=== PATIENT | female | born 1965 | race Caucasian/White ===

== ENCOUNTER 2019-01-07 15:34 | Emergency (ER) | payer MEDICAID, SELFPAY ==
[2019-01-07 15:47] VITALS: BP 110/63; PULSE 65; RESP 20; TEMP 36.8; O2SAT 98
--- NOTE | 2019-01-07 16:09 | W.ED.GENAD ---
Discharge Plan Disposition Patient Disposition: HOME Condition: Stable Discharge Details Chief Complaint: Orthopedic Clinical Impression: Pain in left knee Primary Care Provider: Billy Dumont ED Provider: Eder Sparks Home Meds and New Rx's Prescriptions: No Action No Known Home Meds RF: 0 Discharge Instructions Instructions: Knee Pain (ED) Additional Instructions: call orthopedics for an appointment. If you develop severe worsening pain, fevers or the joint becomes red and swollen return to the emergency department Medical Decision Making 53 yo female states she was getting exercises done on her lower legs in October when the therapist yanked her left knee and has had pain since. SHe denies any other trauma, fevers, hcills. Has increased pain at the end of the end of the day. Localizes the pain to the anterior patella and has pain over medial joint line, no effusion, warmth or redness, no findings to suggest septic joint. She did dnot have any trauma and has full rom of the knee so doubt fx/dislocation. She does have some medial joint pain so could be arthritis vs meniscus injury. I recommended f/u with pcp but she states she doesn't trust them and would like ortho referral which I will provide, return precautions given. There is no leg swelling or calf pain so doubt dvt at this time Differential Diagnosis meniscus injury, bursitis, arthritis HPI General Mode of arrival: ambulatory. Date/Time Provider Initiated Documentation: 01/07/19 15:54. Limitations to Documentation: no limitations. Information obtained by: patient. History of Present Illness 53 year old F presents to the emergency department with the chief complaint of left knee pain, described as mild, Quality is described as aching, Patient started experiencing this month(s) (3) and it has been constant. No relieving factors improve symptom(s), No exacerbating factors reported . Patient did receive the following treatments prior to arrival, none Related Data Home Medications Medication Instructions Recorded Confirmed Unknown [No Known Home Meds] 01/07/19 01/07/19 Allergies Allergy/AdvReac Type Severity Reaction Status Date / Time bee venom protein (honey bee) Allergy Unverified 01/07/19 15:56 General Stated Complaint: Orthopedic AGNIESZKA: 3 Review of Systems Review of Systems All systems reviewed & are unremarkable except as noted in HPI and below Constitutional Denies chills and Denies fever(s) Cardiovascular Denies chest pain and Denies dyspnea Respiratory Denies cough and Denies dyspnea Gastrointestinal Denies abdominal pain, Denies nausea and Denies vomiting Exam Const General: no acute distress Orientation: alert HENMT Head: normal to inspection Ears: external ears normal General nose exam: external nose normal Mouth: moist mucous membranes Eyes General: appearance normal, both eyes and all related structures Neck Neck: normal visual inspection Resp Effort & Inspection: normal respiratory effort and able to speak in complete sentences Cardio Rate: regular rate Skin General skin exam: no rashes or lesions noted Neuro General: alert and oriented x3 Extrem General: normal to inspection Psych Mental Status: mental status grossly normal Course Vital Signs Temperature 36.8 C 01/07/19 15:47 Pulse 65 01/07/19 15:47 Respiratory Rate 20 01/07/19 15:47 Blood Pressure 110/63 01/07/19 15:47 Pulse Oximetry 98 01/07/19 15:47 Temperature 36.8 C 01/07/19 15:47 Temperature Source Temporal Artery Scan 01/07/19 15:47 Pulse 65 01/07/19 15:47 Respiratory Rate 20 01/07/19 15:47 Blood Pressure 110/63 01/07/19 15:47 Pulse Oximetry 98 01/07/19 15:47 Pain Level 7 01/07/19 15:47
--- NOTE | 2019-01-07 16:13 | ED.GENADUL_ITS ---
Discharge Plan Disposition Patient Disposition: HOME Condition: Stable Discharge Details Chief Complaint: Orthopedic Clinical Impression: Pain in left knee Primary Care Provider: Billy Dumont ED Provider: Eder Sparks Home Meds and New Rx's Prescriptions: No Action No Known Home Meds RF: 0 Discharge Instructions Instructions: Knee Pain (ED) Additional Instructions: call orthopedics for an appointment. If you develop severe worsening pain, fevers or the joint becomes red and swollen return to the emergency department Medical Decision Making 53 yo female states she was getting exercises done on her lower legs in October when the therapist yanked her left knee and has had pain since. SHe denies any other trauma, fevers, hcills. Has increased pain at the end of the end of the day. Localizes the pain to the anterior patella and has pain over medial joint line, no effusion, warmth or redness, no findings to suggest septic joint. She did dnot have any trauma and has full rom of the knee so doubt fx/dislocation. She does have some medial joint pain so could be arthritis vs meniscus injury. I recommended f/u with pcp but she states she doesn't trust them and would like ortho referral which I will provide, return precautions given. There is no leg swelling or calf pain so doubt dvt at this time Differential Diagnosis meniscus injury, bursitis, arthritis HPI General Mode of arrival: ambulatory . Date/Time Provider Initiated Documentation: 01/07/19 15:54 . Limitations to Documentation: no limitations . Information obtained by: patient . History of Present Illness 53 year old F presents to the emergency department with the chief complaint of left knee pain, described as mild, Quality is described as aching, Patient started experiencing this month(s) (3) and it has been constant. No relieving factors improve symptom(s), No exacerbating factors reported . Patient did receive the following treatments prior to arrival, none Related Data Home Medications Medication Instructions Recorded Confirmed Unknown [No Known Home Meds] 01/07/19 01/07/19 Allergies Allergy/AdvReac Type Severity Reaction Status Date / Time bee venom protein (honey bee) Allergy Unverified 01/07/19 15:56 General Stated Complaint: Orthopedic AGNIESZKA: 3 Review of Systems Review of Systems All systems reviewed & are unremarkable except as noted in HPI and below Constitutional Denies chills and Denies fever(s) Cardiovascular Denies chest pain and Denies dyspnea Respiratory Denies cough and Denies dyspnea Gastrointestinal Denies abdominal pain, Denies nausea and Denies vomiting Exam Const General: no acute distress Orientation: alert HENMT Head: normal to inspection Ears: external ears normal General nose exam: external nose normal Mouth: moist mucous membranes Eyes General: appearance normal, both eyes and all related structures Neck Neck: normal visual inspection Resp Effort & Inspection: normal respiratory effort and able to speak in complete sentences Cardio Rate: regular rate Skin General skin exam: no rashes or lesions noted Neuro General: alert and oriented x3 Extrem General: normal to inspection Psych Mental Status: mental status grossly normal Course Vital Signs Temperature 36.8 C 01/07/19 15:47 Pulse 65 01/07/19 15:47 Respiratory Rate 20 01/07/19 15:47 Blood Pressure 110/63 01/07/19 15:47 Pulse Oximetry 98 01/07/19 15:47 Temperature 36.8 C 01/07/19 15:47 Temperature Source Temporal Artery Scan 01/07/19 15:47 Pulse 65 01/07/19 15:47 Respiratory Rate 20 01/07/19 15:47 Blood Pressure 110/63 01/07/19 15:47 Pulse Oximetry 98 01/07/19 15:47 Pain Level 7 01/07/19 15:47
[2019-01-07 16:39] VITALS: BP 110/63; PULSE 65; RESP 20; TEMP 36.8; O2SAT 98
== END 2019-01-07 16:39 | disposition home or self-care (01) ==
PROVIDERS: Emergency Provider Emergency Medicine; PCP Family Medicine
DX: M25.562 Pain in left knee (principal)
CPT/HCPCS: 99282

== ENCOUNTER 2019-01-15 09:02 | Outpatient (CLI) | payer MEDICAID, SELFPAY ==
--- NOTE | 2019-01-15 11:07 | DI.RAD_ITS ---
SYMPTOMS/DIAGNOSIS: LT KNEE PAIN LEFT KNEE: Two views were obtained. There is mild hypertrophic spurring of the bones of the knee. Calcific or ossific radiodensity is projected posterior to the proximal tibia which is nonspecific. No other significant bony abnormality seen.
== END 2019-01-15 09:22 ==
PROVIDERS: PCP Family Medicine; Visit Provider Physician Assistant
DX: M25.562 Pain in left knee (principal)
CPT/HCPCS: 73560

== ENCOUNTER 2019-02-19 18:08 | Emergency (ER) | payer MEDICAID, SELFPAY ==
[2019-02-19 18:15] VITALS: BP 115/63; PULSE 61; RESP 16; TEMP 36.9; O2SAT 98
--- NOTE | 2019-02-19 18:26 | W.ED.GENAD ---
Discharge Plan Disposition Patient Disposition: HOME Discharge Details Chief Complaint: Orthopedic Clinical Impression: Contusion of elbow, right, Effusion, left knee, Injury of knee, left Primary Care Provider: None,None ED Provider: Ulises Alvarado Home Meds and New Rx's Prescriptions: No Action No Known Home Meds RF: 0 Discharge Instructions Instructions: Elbow Sprain (ED), Hinged Knee Brace (ED) Additional Instructions: Please use sling for comfort. As your pain decreases you can discontinue use. Use hinged knee brace to provide support for the next 2 weeks. Please take ibuprofen over the counter. Take 400mg by mouth every 6 hours as needed for pain. Please contact your primary care physician to arrange follow-up. If pain persist you should be seen by soil specialist. Return to the ER for any worsening or new concerning symptoms. Medical Decision Making 18:57 -- 53-year-old female with Ukoaqga-Chuvx-Gbljw disease and intermittent dizziness here after fall down 2 steps with injury to her right elbow and left knee. Patient is neurovascular intact distal to injury both extremities. Consider right elbow fracture. Plan to xray. I will also x-ray the left knee to assess for any bony abnormality but I am concerned about meniscal injury or ligamentous injury. Plan to give ibuprofen 400 mg for discomfort. 20:20 -- X-ray of the elbow interpreted by radiology: No acute bony abnormality. X-ray of the knee interpreted by radiology: No acute bony abnormality, small effusion (worse compared to prior) Plan to place right elbow in sling and left knee in hinged knee brace. I suggested single crutch to help with ambulation and patient declined. On reassessment patient notes pain significantly improved after ibuprofen. HPI General Mode of arrival: ambulatory. Date/Time Provider Initiated Documentation: 02/19/19 18:26. Limitations to Documentation: no limitations. Information obtained by: patient. HPI Narrative: 53-year-old female presents with chief complaint of elbow pain. 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 Today she was going down her stairs and experienced dizziness and fell down 2 steps and injured her right elbow and left knee. Elbow pain is described as moderate and worse with movement of the elbow. She has no associated numbness or tingling. No shoulder or wrist pain. Patient also notes left knee discomfort. Specifically she notes that when she stands on it she has some discomfort in the posterior of her knee and feels like her knee is going to give out when she takes a step. Patient did not hit her head during the fall. She has no headache. No loss of consciousness. No neck pain or back pain. No other injury. Related Data Home Medications Medication Instructions Recorded Confirmed Unknown [No Known Home Meds] 02/19/19 02/19/19 Allergies Allergy/AdvReac Type Severity Reaction Status Date / Time bee venom protein (honey bee) Allergy Unverified 02/19/19 18:18 General Stated Complaint: Orthopedic AGNIESZKA: 4 Review of Systems Musculoskeletal Reports as per HPI Neurologic Reports as per HPI [facility] Medical History History of hysterectomy (Resolved) Social History Smoking/Tobacco Use Status: Never Alcohol Intake: never Exam Const General: cooperative and no acute distress HENMT Head: normocephalic and atraumatic Neck Neck: trachea midline and supple Resp Auscultation: clear to auscultation bilaterally, no rales, no rhonchi and no wheezes Cardio Jugular venous pressure: no JVD Rate: regular rate and not tachycardic Rhythm: regular rhythm Back/Spine/Pelvis Back: No back tenderness Cervical Spine: cervical ROM normal and No cervical spinal tenderness Skin General skin exam: no rashes or lesions noted Neuro General: alert, awake and tone normal Extrem General: no edema Right upper extremity: shoulder/upper arm Details: no tenderness, elbow/forearm Details: tenderness Location: of the lateral epicondyle and of the medial epicondyle, abnormal ROM Details: pain with active ROM during Details: with extension and with supination and distal pulses intact; no deformity and wrist Details: normal ROM; no tenderness Left lower extremity: knee Details: normal ROM and knee ligament exam normal; no tenderness, no swelling and no unusual warmth Course Vital Signs Temperature 36.9 C 02/19/19 18:15 Pulse 61 02/19/19 18:15 Respiratory Rate 16 02/19/19 18:15 Blood Pressure 115/63 02/19/19 18:15 Pulse Oximetry 98 02/19/19 18:15 Temperature 36.9 C 02/19/19 18:15 Temperature Source Skin 02/19/19 18:15 Pulse 61 02/19/19 18:15 Respiratory Rate 16 02/19/19 18:15 Respiratory Effort Non-Labored 02/19/19 18:15 Blood Pressure 115/63 02/19/19 18:15 Blood Pressure Position Sitting 02/19/19 18:15 Pulse Oximetry 98 02/19/19 18:15 Oxygen Delivery Method Room Air 02/19/19 18:15 Oxygen Flow Rate 0 02/19/19 18:15 Pain Level 8 02/19/19 18:15
--- NOTE | 2019-02-19 18:46 | DI.RAD_ITS ---
SYMPTOM/DIAGNOSIS: PAIN, FALL RIGHT ELBOW: Three views. No priors. No acute fracture or dislocation is present.
--- NOTE | 2019-02-19 18:46 | DI.RAD_ITS ---
SYMPTOM/DIAGNOSIS: PAIN, FALL, FEELS LIKE GOING TO GIVE OUT LEFT KNEE: Three views. Comparison 01/15/19 No acute fracture or dislocation is identified. There is a tiny osseous density adjacent to the tibial spine which appears stable. There is a small joint effusion which has shown slight increase in size compared to the prior examination. The soft tissues are otherwise unremarkable. IMPRESSION: No acute fracture or dislocation.
--- NOTE | 2019-02-19 18:58 | ED.GENADUL_ITS ---
Discharge Plan Disposition Patient Disposition: HOME Discharge Details Chief Complaint: Orthopedic Clinical Impression: Contusion of elbow, right, Effusion, left knee, Injury of knee, left Primary Care Provider: None,None ED Provider: Ulises Alvarado Home Meds and New Rx's Prescriptions: No Action No Known Home Meds RF: 0 Discharge Instructions Instructions: Elbow Sprain (ED), Hinged Knee Brace (ED) Additional Instructions: Please use sling for comfort. As your pain decreases you can discontinue use. Use hinged knee brace to provide support for the next 2 weeks. Please take ibuprofen over the counter. Take 400mg by mouth every 6 hours as needed for pain. Please contact your primary care physician to arrange follow-up. If pain persist you should be seen by medical education specialist. Return to the ER for any worsening or new concerning symptoms. Medical Decision Making 18:57 -- 53-year-old female with Lgfgrgn-Xhfms-Spjuw disease and intermittent dizziness here after fall down 2 steps with injury to her right elbow and left knee. Patient is neurovascular intact distal to injury both extremities. Consider right elbow fracture. Plan to xray. I will also x-ray the left knee to assess for any bony abnormality but I am concerned about meniscal injury or ligamentous injury. Plan to give ibuprofen 400 mg for discomfort. 20:20 -- X-ray of the elbow interpreted by radiology: No acute bony abnormality. X-ray of the knee interpreted by radiology: No acute bony abnormality, small effusion (worse compared to prior) Plan to place right elbow in sling and left knee in hinged knee brace. I suggested single crutch to help with ambulation and patient declined. On reassessment patient notes pain significantly improved after ibuprofen. HPI General Mode of arrival: ambulatory . Date/Time Provider Initiated Documentation: 02/19/19 18:26 . Limitations to Documentation: no limitations . Information obtained by: patient . HPI Narrative: 53-year-old female presents with chief complaint of elbow pain. 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 Today she was going down her stairs and experienced dizziness and fell down 2 steps and injured her right elbow and left knee. Elbow pain is described as moderate and worse with movement of the elbow. She has no associated numbness or tingling. No shoulder or wrist pain. Patient also notes left knee discomfort. Specifically she notes that when she stands on it she has some discomfort in the posterior of her knee and feels like her knee is going to give out when she takes a step. Patient did not hit her head during the fall. She has no headache. No loss of consciousness. No neck pain or back pain. No other injury. Related Data Home Medications Medication Instructions Recorded Confirmed Unknown [No Known Home Meds] 02/19/19 02/19/19 Allergies Allergy/AdvReac Type Severity Reaction Status Date / Time bee venom protein (honey bee) Allergy Unverified 02/19/19 18:18 General Stated Complaint: Orthopedic AGNIESZKA: 4 Review of Systems Musculoskeletal Reports as per HPI Neurologic Reports as per HPI [facility] Medical History History of hysterectomy (Resolved) Social History Smoking/Tobacco Use Status: Never Alcohol Intake: never Exam Const General: cooperative and no acute distress HENMT Head: normocephalic and atraumatic Neck Neck: trachea midline and supple Resp Auscultation: clear to auscultation bilaterally, no rales, no rhonchi and no wheezes Cardio Jugular venous pressure: no JVD Rate: regular rate and not tachycardic Rhythm: regular rhythm Back/Spine/Pelvis Back: No back tenderness Cervical Spine: cervical ROM normal and No cervical spinal tenderness Skin General skin exam: no rashes or lesions noted Neuro General: alert, awake and tone normal Extrem General: no edema Right upper extremity: shoulder/upper arm Details: no tenderness, elbow/forearm Details: tenderness Location: of the lateral epicondyle and of the medial epicondyle, abnormal ROM Details: pain with active ROM during Details: with extension and with supination and distal pulses intact; no deformity and wrist Details: normal ROM; no tenderness Left lower extremity: knee Details: normal ROM and knee ligament exam normal; no tenderness, no swelling and no unusual warmth Course Vital Signs Temperature 36.9 C 02/19/19 18:15 Pulse 61 02/19/19 18:15 Respiratory Rate 16 02/19/19 18:15 Blood Pressure 115/63 02/19/19 18:15 Pulse Oximetry 98 02/19/19 18:15 Temperature 36.9 C 02/19/19 18:15 Temperature Source Skin 02/19/19 18:15 Pulse 61 02/19/19 18:15 Respiratory Rate 16 02/19/19 18:15 Respiratory Effort Non-Labored 02/19/19 18:15 Blood Pressure 115/63 02/19/19 18:15 Blood Pressure Position Sitting 02/19/19 18:15 Pulse Oximetry 98 02/19/19 18:15 Oxygen Delivery Method Room Air 02/19/19 18:15 Oxygen Flow Rate 0 02/19/19 18:15 Pain Level 8 02/19/19 18:15
[2019-02-19] MEDS: Ibuprofen 400 MG TAB PO (18:59)
--- NOTE | 2019-02-19 19:25 | DI.VRAD_ITS ---
EXAM: XR Right Elbow EXAM DATE/TIME: 02/19/2019 18:48 CLINICAL HISTORY: 53 years old, female; Elbow; Right; Patient HX: Pain, fall TECHNIQUE: Imaging protocol: XR Right elbow. Views: 3 or more views. COMPARISON: No relevant prior studies available. FINDINGS: Bones/joints: No acute fracture or subluxation. Soft tissues: No significant joint effusion. IMPRESSION: No acute bony pathology. Dictated and Authenticated by: Stella Martin MD. Ordering:MACY Montgomery MD
--- NOTE | 2019-02-19 19:26 | DI.VRAD_ITS ---
EXAM: XR Left Knee EXAM DATE/TIME: 02/19/2019 18:48 CLINICAL HISTORY: 53 years old, female; Pain and signs and symptoms; Other: Pain, fall, feels like going to give out; Knee; Left TECHNIQUE: Imaging protocol: XR Left knee. Views: 3 views. COMPARISON: CR XR knee LT 3V AP,lat,andrey 01/15/2019 11:13 FINDINGS: Bones/joints: No acute fracture or subluxation. Stable tiny calcific density projects adjacent to the medial tibial spine and could reflect a small loose body. Benign coarse calcification in the medial knee. Trace joint effusion has increased slightly. Minimal degenerative changes in the medial and lateral compartments. Soft tissues: See Bones/joints Finding. IMPRESSION: No acute bony pathology. Slight increase in a minor joint effusion. Dictated and Authenticated by: tSella Martin MD. Ordering:MACY Montgomery MD
== END 2019-02-19 20:51 | disposition home or self-care (01) ==
PROVIDERS: Emergency Provider Student in an Organized Health Care Education/Training Program
DX: M25.462 Effusion, left knee (principal); S50.01XA Contusion of right elbow, initial encounter; G60.0 Hereditary motor and sensory neuropathy; W10.8XXA Fall (on) (from) other stairs and steps, initial encounter
CPT/HCPCS: 29505; 73562; 99284; 73080; 99282; L1810; L3650

== ENCOUNTER 2019-03-06 01:15 | Outpatient (CLI) | payer MEDICAID, SELFPAY ==
--- NOTE | 2019-03-06 15:32 | DI.MRI_ITS ---
SYMPTOMS/DIAGNOSIS: LEFT KNEE PAIN S/P FALL 2 WEEKS AGO, INTERNAL DERANGEMENT, M23.92 MRI OF THE LEFT KNEE: Comparison is made with plain films dated February,. Fat-suppressed T2 axial, proton density and fat-suppressed T2 axial and sagittal and proton density oblique sagittal sequences were performed. There is a small joint effusion. Edema is seen in the soft tissues of the anterior knee. The cruciate and collateral ligaments and extensor mechanism appear intact. No meniscal tears are seen. There is cartilage irregularity over the medial femoral condyle. There is marked thinning of the cartilage extending down to bone involving the lateral patellar facet. There is some high signal in the lateral aspect of the patella, as well as periarticular spurring. There is a fluid collection in the inferomedial knee, which contains an ovoid density which could represent a loose body. This is seen on the plain films. There is no evidence of fracture. IMPRESSION: No evidence of ligament or meniscal tear. Degenerative changes of the lateral patellofemoral joint. Fluid in the pes anserine bursa and loose body within the bursa.
== END 2019-03-06 01:35 ==
PROVIDERS: Visit Provider Orthopaedic Surgery
DX: M25.562 Pain in left knee (principal); M23.92 Unspecified internal derangement of left knee; M17.12 Unilateral primary osteoarthritis, left knee; R60.0 Localized edema
CPT/HCPCS: 73721

== ENCOUNTER 2019-04-28 10:37 | Outpatient (REF) | payer MEDICAID, SELFPAY ==
[2019-04-28 13:09] LABS: HCT 41.8 % (36.0-46.0); HGB 13.7 g/dL (12.0-15.5); Mean Corp. HGB Concentration 32.8 g/dL (32.0-36.0); Mean Corpuscular Hemoglobin 29.5 pg (27.0-33.0); Mean Corpuscular Volume 89.9 fL (80-95); Mean Platelet Volume 10.8 fL (8.0-11.0); Platelet Count 270 x1000/uL (130-400); RBC 4.65 m/cumm (4.00-5.20); RBC Distribution Width 13.8 % (11.7-14.6); White Blood Cell Count 6.13 k/cumm (4.4-10.8)
[2019-04-28 14:42] LABS: ALT 27 U/L (12-78); AST 19 U/L (15-37); Albumin 3.5 g/dL (3.4-5.0); Alkaline Phosphatase 83 U/L (46-116); Anion Gap 9.9 mmol/L (3-11); BUN 18 mg/dL (7-18); Bilirubin, Total 0.4 mg/dL (0.2-1.0); CO2 26.1 mmol/L (21.0-32.0); Calcium 8.7 mg/dL (8.5-10.1); Calculated LDL 148 mg/dL; Chloride 104 mmol/L (98-107); Cholesterol 218 mg/dL (50-200); Glucose 86 mg/dL (70-100); HDL Cholesterol 60 mg/dL (40-60); Potassium 4.1 mmol/L (3.5-5.1); Sodium 140 mmol/L (136-145); Total Protein 7.4 g/dL (6.4-8.2); Triglyceride 53 mg/dL (30-150)
== END 2019-04-28 10:57 ==
LOC: NCHCN 10:37
PROVIDERS: Visit Provider Nurse Practitioner Family
DX: Z00.00 Encounter for general adult medical examination without abnormal findings (principal); Z13.0 Encounter for screening for diseases of the blood and blood-forming organs and certain disorders involving the immune mechanism; Z13.1 Encounter for screening for diabetes mellitus; Z13.220 Encounter for screening for lipoid disorders
CPT/HCPCS: 80053; 80061; 83721; 85027

== ENCOUNTER 2019-05-13 17:44 | Emergency (ER) | payer MEDICAID, SELFPAY ==
[2019-05-13 17:54] VITALS: BP 123/74; PULSE 65; RESP 16; TEMP 37.1; O2SAT 98
--- NOTE | 2019-05-13 18:09 | DI.RAD_ITS ---
SYMPTOM/DIAGNOSIS: FALL, LATERAL PAIN AND ECCHYMOSIS PELVIS AND LEFT HIP: Three views were obtained. No acute fracture or dislocation is identified. The bones are normally mineralized. There are clips in the pelvis consistent with prior tubal ligation. IMPRESSION: No acute fracture or dislocation.
--- NOTE | 2019-05-13 18:16 | ED.GENADUL_ITS ---
Discharge Plan Disposition Patient Disposition: HOME Condition: Good Discharge Details Chief Complaint: Orthopedic Clinical Impression: Contusion Primary Care Provider: Ryan Grigsby ED Provider: Gail Hargrove Home Meds and New Rx's Prescriptions: New lidocaine [Lidoderm] 5 % adhesive patch,medicated 1 patch TP DAILY PRN (Reason: pain) Qty: 15 RF: 0 Discharge Instructions Instructions: Contusion in Adults (ED) Additional Instructions: Encourage rest, ice, elevation. Tylenol and ibuprofen as needed for discomfort. Please follow-up with orthopedics to discuss upcoming surgery. If the area becomes red, hot, increased swelling, increased pain, altered sensation or other new/worsening symptoms please seek care urgently once again. Referrals: Ludwig Esparza MD [ [facility] STAFF PHYSICIAN] - Medical Decision Making Patient is a 54-year-old female presenting today with chief complaint of left hip pain. Patient has a history of Ulazixo-Uzkmi-Yvjye disorder. She reports that yesterday, she fell while doing laundry. States she landed on the left posterior aspect of the left hip. Denies any altered sensation. 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 Has upcoming surgery on the left knee for evaluation of unknown effusion. FINDINGS: Bones/joints: Hip joint spaces are symmetric and well-preserved. There is no dislocation. There is no acute fracture. There is prominent medial angulation of the left femoral diaphysis compared to the right side however the Soft tissues: Normal. Intraperitoneal space: There surgical clips in the pelvis consistent with a tubal ligation. IMPRESSION: Angulation of the visualized portion of femoral shaft which may just be due to patient positioning. It is possible that this could be due to an abnormality of the lower femur which is not visualized. Clinical correlation is suggested Concerns of radiologist as above does not correlate clinically. Patient reports that she had her toes internally rotated during imaging. With patients history of CMT, she has a list of 60 medications that she should not take, she reports that she is very limited on medications. Given topical relief with Lidoderm patch. i do not see evidence of large hematoma, exam is not concerning for DVT at this time Feel that she can be managed conservatively as an outpatient. Advised she contact Dr. Esparza as she has upcoming surgeyr with his for her left knee. She was given strict return precautions. All of her questions and concerns were addressed, she is in agreement with this plan . HPI General Mode of arrival: ambulatory . Date/Time Provider Initiated Documentation: 05/13/19 17:52 . Limitations to Documentation: no limitations . Information obtained by: patient, family and RN notes reviewed . History of Present Illness 54 year old F presents to the emergency department with the chief complaint of left hip pain, described as mild, Quality is described as aching, and is localized to the left and lower extremity. Patient reports no radiation. Patient started experiencing this day(s) (1) and it has been constant. Immobilization improves symptom(s), Movement worsens symptoms . Patient notes no other symptoms.. Patient did receive the following treatments prior to arrival, none Related Data Home Medications Medication Instructions Recorded Confirmed lidocaine [Lidoderm] 1 patch TP DAILY PRN #15 each 05/13/19 Previous Rx's Medication Instructions Recorded lidocaine [Lidoderm] 1 patch TP DAILY PRN #15 each 05/13/19 Allergies Allergy/AdvReac Type Severity Reaction Status Date / Time bee venom protein (honey bee) Allergy Unverified 04/28/19 10:09 paclitaxel [From Taxol] AdvReac Severe Other (See Unverified 05/13/19 20:34 Comment) vincristine AdvReac Severe Other (See Unverified 05/13/19 20:34 Comment) amiodarone AdvReac Intermediate Other (See Unverified 05/13/19 20:34 Comment) arsenic [From Trisenox] AdvReac Intermediate Other (See Unverified 05/13/19 20:34 Comment) bortezomib [From Velcade] AdvReac Intermediate Other (See Unverified 05/13/19 20:34 Comment) brentuximab vedotin AdvReac Intermediate Other (See Unverified 05/13/19 20:34 [From Adcetris] Comment) cetuximab [From Erbitux] AdvReac Intermediate Other (See Unverified 05/13/19 20:34 Comment) cisplatin AdvReac Intermediate Other (See Unverified 05/13/19 20:34 Comment) dapsone AdvReac Intermediate Other (See Unverified 05/13/19 20:34 Comment) didanosine AdvReac Intermediate Other (See Unverified 05/13/19 20:34 Comment) disulfiram AdvReac Intermediate Other (See Unverified 05/13/19 21:19 Comment) eribulin [From Halaven] AdvReac Intermediate Other (See Unverified 05/13/19 21:19 Comment) oxaliplatin AdvReac Intermediate Other (See Unverified 05/13/19 20:34 Comment) General Stated Complaint: Orthopedic AGNIESZKA: 4 Review of Systems Constitutional Reports as per HPI, Denies chills, Denies fever(s), Denies headache(s) and Denies weakness ENT Denies headache(s) Cardiovascular Reports as per HPI Respiratory Reports as per HPI and Denies cough Musculoskeletal Reports as per HPI and Denies tingling Integumentary/Breasts Reports as per HPI, Denies rash, Denies wounds and Reports other (ecchymosis left postioerlateral hip) Neurologic Reports as per HPI, Denies headache(s), Denies tingling, Denies paresthesias and Denies weakness [facility] Medical History History of hysterectomy (Resolved) Social History Smoking/Tobacco Use Status: Never Alcohol Intake: never Substance use type: former substance user Do you feel safe at home: Yes Do you feel safe in your relationship?: Yes Exam Const General: cooperative, healthy appearing, comfortable, no acute distress, well developed and well groomed Nutritional Appearance: average body habitus and well nourished Orientation: alert and awake Resp Effort & Inspection: normal respiratory effort, able to speak in complete sentences and no respiratory distress Cardio Rate: regular rate Rhythm: regular rhythm Skin General skin exam: ecchymosis (posteriolaterla left hip) Full body images: 1. ecchymosis with soft tissue swelling Neuro General: alert and awake Cognition: normal cognition Speech: speech normal Gait: normal gait Motor: muscle tone normal throughout Sensory Exam: no sensory deficits noted Extrem Left lower extremity: full ROM, normal capillary refill, no joint enlargement, hip/thigh Details: tenderness Location: of the hip Location: laterally, swelling Location: of the hip, normal ROM and ecchymosis; no abrasions, no lacerations, no crepitus, no penetrating wound, no deformity and no unusual warmth, knee Details: tenderness and swelling (no acute change in this); inspection abnormal (swelling to left knee, patient reports this is chronic), lower leg Details: normal to inspection and no edema; no erythema, no tenderness, no localized swelling and no palpable cords and foot Details: normal capillary refill and vascular exam Details: dorsalis pedis pulse present and normal capillary refill; no cyanosis and no edema Psych Appearance: grossly normal and well kempt Mental Status: mental status grossly normal Speech and Movement: speech and movement normal Course Vital Signs Temperature 37.1 C 05/13/19 17:54 Pulse 65 05/13/19 17:54 Respiratory Rate 16 05/13/19 17:54 Blood Pressure 123/74 05/13/19 17:54 Pulse Oximetry 98 05/13/19 17:54 Temperature 37.1 C 05/13/19 17:54 Temperature Source Temporal Artery Scan 05/13/19 17:54 Pulse 65 05/13/19 17:54 Respiratory Rate 16 05/13/19 17:54 Respiratory Effort Non-Labored 05/13/19 17:56 Blood Pressure 123/74 05/13/19 17:54 Blood Pressure Position Sitting 05/13/19 17:54 Pulse Oximetry 98 05/13/19 17:54 Oxygen Delivery Method Room Air 05/13/19 17:54 Oxygen Flow Rate 0 05/13/19 17:54 Pain Level 9 05/13/19 17:56
[2019-05-13] MEDS: Lidocaine 5% Patch 1 PATCH TP (18:17)
--- NOTE | 2019-05-13 19:11 | DI.VRAD_ITS ---
EXAM: XR Left Hip with Pelvis when Performed EXAM DATE/TIME: 05/13/2019 6:10 PM CLINICAL HISTORY: 54 years old, female; Hip pain and other: Fall, lateral pain, ecchymosis; Left hip TECHNIQUE: Imaging protocol: XR Left hip with pelvis when performed. Views: 2 or 3 views. COMPARISON: No relevant prior studies available. FINDINGS: Bones/joints: Hip joint spaces are symmetric and well-preserved. There is no dislocation. There is no acute fracture. There is prominent medial angulation of the left femoral diaphysis compared to the right side however the Soft tissues: Normal. Intraperitoneal space: There surgical clips in the pelvis consistent with a tubal ligation. IMPRESSION: Angulation of the visualized portion of femoral shaft which may just be due to patient positioning. It is possible that this could be due to an abnormality of the lower femur which is not visualized. Clinical correlation is suggested Dictated and Authenticated by: Eder Vargas MD. Ordering:NEFTALI Reynolds MD
== END 2019-05-13 19:46 | disposition home or self-care (01) ==
PROVIDERS: Emergency Provider Physician Assistant; PCP Nurse Practitioner Family
DX: S70.02XA Contusion of left hip, initial encounter (principal); W18.30XA Fall on same level, unspecified, initial encounter; Y93.E2 Activity, laundry; G60.0 Hereditary motor and sensory neuropathy
CPT/HCPCS: 99283; 73502

== ENCOUNTER 2019-05-21 13:56 | Outpatient (CLI) | payer MEDICAID, SELFPAY ==
--- NOTE | 2019-05-21 13:11 | W.PREOPHP ---
Assessment and Plan (1) Internal derangement of left knee: Current visit: No Status: Acute Plan: Educated patient on surgery covering surgical technique, recovery process, benefits and risks including but not limited to risk of infection, blood clot, damage to soft tissue/blood vessels/nerves in detail. After discussion patient gives verbal understanding of risks and elects to proceed with scheduling surgery. Patient had opportunity to have questions answered to their satisfaction. They will contact office if issues arise. Patient will continue to be scheduled for diagnostic left knee arthroscopy with Dr. Esparza. History of Present Illness Narrative: Ms. 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 Esparza. Patient has been seen in clinic numerous times for complaints of left knee pain. Review of patient's chart shows that she previously been diagnosed with patellofemoral syndrome and received an injection on 01/15/2019. As per patient injection provided significant pain relief of her left knee pain, unfortunately she suffered a fall in early February and did not experience adequate pain relief with an additional injection received on 03/11/2019. Patient's initial left knee pain started following October 2018 after a fall. Since that time patient has continued to have left knee pain which she identifies as beneath her patella that extends along the entire length of the joint. Although pain is a constant aching sensation, it is further aggravated by ascending/descending stairs and when moving after prolonged sitting. Because the knee feels unstable to her she has also been wearing a knee brace. States that the brace helps to keep the knee stiff and uses a cane to ambulate. Reports recent fall last week in her home when she landed on her left hip which caused significant bruising. Patient underwent an MRI which as per Dr. Esparza's on 03/11/2019 did not show any discrete meniscal injury, ACL and PCL were normal, thinning of articular cartilage on medial femoral condyle and lateral patella facet. Based on patient's continued symptoms despite adequate trial of conservative treatment including rest, activity modification, referral physical therapy, bracing and anti-inflammatories, Dr. Esparza offered surgical intervention patient was eager to proceed. Pertinent Surgical Information Denies past medical history of: Hypertension, stroke, cardiac issues, angina, asthma, COPD, sleep apnea, renal issues, liver issues, hepatitis, gastrointestinal issues, ulcers, hyperlipidemia, bleeding disorders, seizures, migraines, anxiety, depression, diabetes, thyroid issues Denies prior complications from surgery or anesthesia. Review of Systems Constitutional Denies fever(s), Reports frequent falls (due to CMT) and Denies headache(s) Eyes Denies change in vision ENT Denies dizziness, Denies ear discharge, Denies headache(s), Denies epistaxis, Denies nasal discharge and Denies sore throat Cardiovascular Denies chest pain, Denies rapid heart rate, Denies irregular heart rhythm, Denies palpitations, Denies dyspnea, Denies dyspnea on exertion, Denies orthopnea, Denies paroxysmal nocturnal dyspnea and Denies slow heart rate Respiratory Denies cough, Denies dyspnea, Denies dyspnea on exertion and Denies wheezing Gastrointestinal Denies abdominal pain, Denies melena, Denies hematochezia, Denies constipation, Denies diarrhea, Denies nausea and Denies vomiting Genitourinary Denies hematuria, Denies dysuria and Denies urinary urgency Musculoskeletal Reports as per HPI, Denies numbness and Denies tingling Neurologic Denies dizziness, Reports frequent falls (due to CMT), Denies headache(s), Denies numbness and Denies tingling Psychiatric Denies anxiety and Denies depression Endocrine Denies palpitations Allergic/Immunologic Denies wheezing PFSH Medical History (Updated 05/21/19 @ 13:25 by Terri Luna) CMT (Yrvkxoa-Lfgdj-Odbka disease) (Chronic) Diagnosed in 2016 Surgical History (Updated 05/21/19 @ 13:23 by Terri Luna) History of hysterectomy (Resolved) 2007 Status post tubal ligation (Acute) 2006 Family History (Updated 05/21/19 @ 13:27 by Terri Luna) Mother Obesity Father Diabetes Obesity History of heart artery stent Social History (Updated 05/21/19 @ 13:28 by Terri Luna) Smoking/Tobacco Use Status: Never Alcohol Intake: never Drug use: Never Substance use type: does not use Do you feel safe at home: Yes Do you feel safe in your relationship?: Yes Meds Home Medications Medication Instructions Recorded Confirmed Type lidocaine [Lidoderm] 1 patch TP DAILY PRN #15 each 05/13/19 05/21/19 Rx Allergies Allergy/AdvReac Type Severity Reaction Status Date / Time bee venom protein (honey bee) Allergy Unverified 04/28/19 10:09 paclitaxel [From Taxol] AdvReac Severe Other (See Unverified 05/13/19 20:34 Comment) vincristine AdvReac Severe Other (See Unverified 05/13/19 20:34 Comment) amiodarone AdvReac Intermediate Other (See Unverified 05/13/19 20:34 Comment) arsenic [From Trisenox] AdvReac Intermediate Other (See Unverified 05/13/19 20:34 Comment) bortezomib [From Velcade] AdvReac Intermediate Other (See Unverified 05/13/19 20:34 Comment) brentuximab vedotin AdvReac Intermediate Other (See Unverified 05/13/19 20:34 [From Adcetris] Comment) cetuximab [From Erbitux] AdvReac Intermediate Other (See Unverified 05/13/19 20:34 Comment) cisplatin AdvReac Intermediate Other (See Unverified 05/13/19 20:34 Comment) dapsone AdvReac Intermediate Other (See Unverified 05/13/19 20:34 Comment) didanosine AdvReac Intermediate Other (See Unverified 05/13/19 20:34 Comment) disulfiram AdvReac Intermediate Other (See Unverified 05/13/19 21:19 Comment) eribulin [From Halaven] AdvReac Intermediate Other (See Unverified 05/13/19 21:19 Comment) Gold Salts AdvReac Intermediate Other (See Unverified 05/14/19 00:28 Comment) ipilimumab [From Yervoy] AdvReac Intermediate Other (See Unverified 05/14/19 00:28 Comment) ixabepilone [From Ixempra] AdvReac Intermediate Other (See Unverified 05/14/19 00:28 Comment) leflunomide [From Arava] AdvReac Intermediate Other (See Unverified 05/14/19 00:28 Comment) lenalidomide [From Revlimid] AdvReac Intermediate Other (See Unverified 05/14/19 00:28 Comment) metronidazole AdvReac Intermediate Other (See Unverified 05/14/19 00:28 Comment) nitrofurantoin AdvReac Intermediate Other (See Unverified 05/14/19 00:28 Comment) nitrous oxide AdvReac Intermediate Other (See Unverified 05/14/19 00:28 Comment) nivolumab AdvReac Intermediate Other (See Unverified 05/14/19 00:28 Comment) oxaliplatin AdvReac Intermediate Other (See Unverified 05/13/19 20:34 Comment) pembrolizumab [From Keytruda] AdvReac Intermediate Other (See Unverified 05/14/19 00:28 Comment) pomalidomide AdvReac Intermediate Other (See Unverified 05/14/19 00:28 Comment) pyridoxine AdvReac Intermediate Other (See Unverified 05/14/19 00:28 Comment) Quinolones AdvReac Intermediate Other (See Unverified 05/14/19 00:28 Comment) stavudine AdvReac Intermediate Other (See Unverified 05/14/19 00:28 Comment) suramin AdvReac Intermediate Other (See Unverified 05/14/19 00:28 Comment) thalidomide AdvReac Intermediate Other (See Unverified 05/14/19 00:28 Comment) zalcitabine AdvReac Intermediate Other (See Unverified 05/14/19 00:28 Comment) Exam Const General: cooperative and no acute distress HENNE Head: normal to inspection, normocephalic and atraumatic Ears: external ears normal General nose exam: external nose normal and no nasal discharge Face and sinus: face symmetric Mouth: oral mucosae normal, lip normal, tongue normal and moist mucous membranes Teeth and gingiva: dentition normal Throat: posterior oropharynx normal Eyes General: appearance normal, both eyes and all related structures Pupils: PERRL EOM: EOM intact bilaterally Neck Neck: trachea midline Carotids: normal carotid upstroke Lymphatic: no lymphadenopathy noted Resp Effort & Inspection: normal respiratory effort and able to speak in complete sentences Auscultation: clear to auscultation bilaterally, no rales, no rhonchi and no wheezes Cardio Heart Sounds: S1 normal, S2 normal and no murmurs Pulses: radial pulses present bilaterally Skin General skin exam: no rashes or lesions noted
== END 2019-05-21 14:16 ==
PROVIDERS: PCP Nurse Practitioner Family; Visit Provider Orthopaedic Surgery
DX: M23.92 Unspecified internal derangement of left knee (principal); Z01.818 Encounter for other preprocedural examination
CPT/HCPCS: NC

== ENCOUNTER 2019-05-25 08:19 | Day surgery (SDC) | payer MEDICAID, SELFPAY ==
--- NOTE | 2019-05-21 14:33 | NUR.NOTE ---
Pt provided list of allergies r/t Xozdjsa-Awgdg-Ntshb disease, which she was diagnosed with in 2016 with. Offered pt the opportunity to speak with anesthesia, pt declined. Informed June Cuadra CHIMNEY BUILDER HELPER of pt, when her surgery was, and of her diagnosis of Dwjcuyz-Kagix-Nvmhc disease and provided her with the list of allergies. 05/21/19 [id number] Nursing Note:
[2019-05-25] VITALS (13 sets, daily range): BP systolic 90–132; BP diastolic 54–77; PULSE 46–64; RESP 11–16; TEMP 36.1–36.4; O2SAT 98–100
[2019-05-25] MEDS: Lactated Ringers 1,000 ML 80 ML IV (09:15)
[2019-05-25] MEDS: ceFAZolin 2 GM/50 ML BAG IVPB (10:09)
--- NOTE | 2019-05-25 11:39 | W.PM.DSUDISC ---
Discharge Plan Disposition Patient Disposition: HOME Condition: Good Discharge Details Reason For Visit: Arthroscopy L Knee Attending Provider: Ludwig Esparza Primary Care Provider: Ryan Grigsby Home Meds and New Rx's Prescriptions: New ibuprofen [IBU-200] 200 mg tablet 600 mg PO TID Qty: 90 RF: 0 oxycodone-acetaminophen 5-325 mg tablet 1 tab PO Q6H PRN (Reason: pain) Qty: 10 RF: 0 No Action lidocaine [Lidoderm] 5 % adhesive patch,medicated 1 patch TP DAILY PRN (Reason: pain) Qty: 15 RF: 0 Discharge Instructions Additional Instructions: Elevate L leg when sitting. Apply cryocuff to L knee 4 times/day for 1 hour each time. Use walker initially to walk. Put as much weight on L leg as your discomfort allows. Discontinue walker when you can step fully on L leg with minimal pain. May remove dressings, shower, and get incisions wet after 48 hours. Leave incisions uncovered when they are dry and sealed. Outpatient physical therapy on or Sat. Follow up with in 2 weeks. Take ibuprofen 600mg 3 times/day for 10 days. Take oxycodone for breakthru pain, if needed. Referrals: Ludwig Esparza MD [ [facility] STAFF PHYSICIAN] - (f/u in 2 weeks.) Equipment/Supplies: Partial Weight Bearing Crutches Activity:: Activity as Tolerated Remove Dressings/Wound Care:: 48 hours Shower/Bathe:: 48 hours Diet:: As Tolerated Discharge Orders Discharge Orders: Discharge Order (Routine); Ordered 05/25/19 Ordered By: Ludwig Esparza DS: Diagnosis Discharge Diagnosis (1) Internal derangement of left knee: Status: Acute
[2019-05-25] MEDS: fentaNYL 100 MCG/2 ML VIAL IVP (11:57)
[2019-05-25] MEDS: Ketorolac 15 MG/ML VIAL IVP (12:10)
[2019-05-25] MEDS: Acetaminophen 325 MG TAB 650 MG PO (13:43)
--- NOTE | 2019-05-25 16:00 | IN_ITS ---
Date of service: 05/25/19 Time of Service: 14:00 PT Notes Inpatient Physical Therapy Evaluation Date: 05/25/2019 Referring Doctor: Ludwig Esparza MD PT Orders: PT CONSULT: PACU consult Precautions: Fall. Standard. WBAT on L LE. Patient Profile/Admitting Diagnosis: 54-year-old female with Qiamsyq-Bkysr-Ukzbi seen at PACU diagnosed with osteoarthritis and internal derangement of L knee due to chondral fractures of the medial femoral condyle S/P L knee diagnostic arthroscopy with limited chondroplasty of medial femoral condyle and patella today. PMHX: Medical History (Updated 05/21/19 @ 13:25 by Terri Luna) CMT (Gspqkvh-Iusff-Ouyjp disease) (Chronic), Diagnosed in 2015 Surgical History (Updated 05/21/19 @ 13:23 by eTrri Luna) History of hysterectomy (Resolved) 2007 Status post tubal ligation (Acute) 2006 Social History/Home Situation: Patientt lives alone in a private home with three steps to enter and rails on both sides Equipment Owned/DME: None Subjective: Patient consented to a PT eval and education. She states that her knee feels a little stiff and mildly painful specially with weight-bearing. Objective: General Observation: Patient seen resting on PACU bed. Daughters present throughout session. Cryocuff on L knee. Bilateral knee-high TEDS on. Mental Status: Alert and oriented as to person, place, time, and purpose Pain: 1-2/10 with weight bearing ROM: Left Lower Extremity: Hip flexion WFL. Hip abduction WFL. Knee flexion allows up to 90 degrees. Patient able to achieve full terminal knee extension during midstance of gait. Ankle dorsiflexion allows up to 75% of full ROM. Ankle plantarflexion allows up to 75% of full ROM. Strength: Right Lower Extremity: Hip flexors 5/5. Hip abductors 5/5. Knee flexors 5/5. Knee extensors 5/5. Ankle dorsiflexors 5/5. Ankle plantarflexors 5/5. Left Lower Extremity: Hip flexors 5/5. Hip abductors 5/5. Knee flexors 3-/5. Knee extensors 4/5. Ankle dorsiflexors 3-/5. Ankle plantarflexors 3-/5. Bed Mobility/Transfers: Rolling supervision Supine to sit supervision Sit to supine supervision Sit to stand supervision Stand to sit supervision Bed to chair supervision Chair to bed supervision Gait: Patient was able to tolerate level surface ambulation in room and PACU hallway to about 60 feet using FWW requiring CGA of student PT. Minimal verbal cues provided for increased knee flexion on the left LE, walker management, and directional changes. Balance: Static Sitting: Normal Dynamic Sitting: Normal Static Standing: Fair Dynamic Standing: Fair Special Tests: Mobility Limitations Standardized Measure [facility] 6 clicks Basic Mobility Inpatient Short Form: Raw Score: 22 CMS Score: 21% deficit Informed Consent/Education: Patient instructed in purpose of PT consult and plan of care. Patient was educated on proper use of 0-vssstme-wtdjug, safe gait pattern, and on home exercises for this session. Assessment: 54-year-old female with osteoarthritis diagnosed with internal derangement left knee due to chondral fractures of the medial femoral condyle and is status post left knee diagnostic arthroscopy with limited chondroplasty of medial femoral condyle and patella. Patient presents with clinical signs and symptoms consistent with current/admitting diagnoses that have resulted to mobility limitations, gait instability, generalized weakness, and impairment of motor control as demonstrated by the following impairment level findings: 1. Decreased strength to L knee major muscle groups 2. Impaired standing balance 3. Impaired activity tolerance 4. Limitation of joint range of motion in L knee flexion Impairments are contributing to the following functional limitations: 1. Inability to safely ambulate without assistive device and physical assistance 2. Increase completion time for mobility ADL performance 3. Increased fall risk 4. Inability to negotiate steps alone safely Patient is assessed as a 02576 moderate complexity based on the following: History: 54-year-old female Examination: Demonstrable impairment in strength, balance, and range of motion with underlying impairments and functional limitations as documented above Presentation:Evolving Decision Makin moderate complexity DISCHARGE RECOMMENDATIONS: May benefit from out-patient skilled physical therapy services according to orthopedic surgeon's timeline recommendations. Patient is discharged by orthopod to home today with the following instructions reinforced in today's visit: Elevate L leg when sitting. Apply cryocuff to L knee 4 times/day for 1 hour each time. Use walker initially to walk. Put as much weight on L leg as your discomfort allows. Discontinue walker when you can step fully on L leg with minimal pain. May remove dressings, shower, and get incisions wet after 48 hours. Leave incisions uncovered when they are dry and sealed. Outpatient physical therapy on Th or Fri. Follow up with in 2 weeks. TREATMENT CODE/TIME: 69636 x39 minutes beginning at 14:09 PM. Thank you very much for this referral. Tanvi Bethea PT, DPT, CLT [facility]
--- NOTE | 2019-05-25 17:07 | ROE_ITS ---
DATE OF PROCEDURE: May 25, 2019 PREOPERATIVE DIAGNOSIS: Internal derangement left knee. POSTOPERATIVE DIAGNOSIS: 1. Internal derangement left knee due to chondral fractures of the medial femoral condyle, left. 2. Osteoarthritis patellofemoral joint. PROCEDURE: Arthroscopy left knee with limited chondroplasty medial femoral condyle and patella. ANESTHESIA: General, Abiel Pedro CRNA SURGEON: Ludwig Esparza M.D. INDICATIONS: This is a 54-year-old white female with persistent pain and swelling, as well as giving way of her left knee of several months duration. Plain x-rays were unremarkable. She has failed to respond to conservative treatment, including steroid injections. MRI scan was nondiagnostic. Becau se of her continued symptoms, a negative MRI scan and lack of improvement with conservative treatment , a diagnostic arthroscopy was recommended. The patient was aware that she may not get relief of her condition from the arthroscopy, depending on the pathology. PROCEDURE: The patient was taken to the Operating Room on 05/25/19. She was placed supine on the oper ating table and a general anesthetic was administered. The left thigh was placed in the arthroscopic leg-charles and the knee was prepped and draped free in the usual sterile fashion. Arthroscopic port als were established. The left knee was inflated with normal saline solution using the arthroscopy p ump and then routine arthroscopic examination proceeded. Intraoperative photographs were obtained to document pertinent findings. Upon entering the medial compartment, she was noted to have chondral damage to the medial femoral con dyle with separation of partial thickness of the articular cartilage. There was no full-thickness lo ss of articular cartilage noted however. I probed the extent of the articular cartilage injury. Sin ce it was partial thickness, I then used the 90-degree ArthroCare electrocautery wand and debrided th e loose articular cartilage on the medial femoral condyle down to stable cartilage. After debridemen t was completed, I probed the area with the blunt-tipped right-angle probe and all the articular cart ilage appeared to be stable and no longer . Intraoperative photographs were obtained to doc ument the appearance the medial femoral condyle prior to the debridement and then after the debrideme nt. The medial meniscus was probed under direct vision and was fully stable. No significant patholo gy was noted on the medial tibial plateau. The intercondylar notch was intact to anterior and posterior cruciate ligaments. The lateral compartment showed normal articular cartilage in the lateral compartment. The lateral me niscus was undamaged. The lateral meniscus was probed under direct vision and was fully stable. The suprapatellar pouch showed some mild synovitis. Medial and lateral gutters were essentially cristóbal r. The patellofemoral joint showed that she had grade 2 osteoarthritis of the patella. The patella was tracking well with no lateral maltracking and no tilting. There was some evidence of some grade 2 OA in the trochlea of the femur as well. The high radio frequency electrocautery wand was used to perform a limited synovectomy to debride some of the hypertrophic synovium that was visualized in the suprapatellar pouch and medial gutter. I then used the high radio frequency electrocautery wand to perform a very limited chondroplasty of the patella only. At this point the knee was copiously irrig ated with saline solution using the arthroscopy pump until the outflow was clear. I injected into th e knee 20 cc's of 0.5% Marcaine with an epinephrine solution along with 4 mg of morphine and then all instruments were removed from the knee. The arthroscopy portals were infiltrated with 0.5% Marcaine with an epinephrine solution and were approximated with interrupted #4-0 Nylon sutures. Sterile kadie ssings were applied of Xeroform gauze, sterile gauze 4x4's, ABD pads and wrapped with a 6-inch SHARON ba ndage for a light pressure dressing. The patient's anesthesia was reversed without complication. Carrie will was discharged to the recovery room in good condition. The patient was later discharged home from the Day Surgery Unit when fully recovered from her general anesthesia. She was given instructions to try to elevate her left leg when sitting. She is to use a Cryo-Cuff to the left knee four times a day for an hour each time. She will use a walker to walk, weightbearing as tolerated to the left knee. She may remove her dressings, shower and get her incisi ons wet after 48 hours. She can leave the incisions uncovered when they are dry and sealed. She michael l begin outpatient physical therapy for range of motion and strengthening of her left knee on 05/28 or 05/29/19. She will take ibuprofen 600 mg p.o. t.i.d. for ten days to decrease inflammation and swell ing. She is given a prescription for Hydrocodone with APAP 5/325, one tablet every six hours, as nee ded, for breakthrough pain. She will follow-up with me in two weeks.
--- NOTE | 2019-05-26 17:30 | NUR.NOTE ---
05/26/19 1550: Pt's daughter, Cleopatra, called day surgery looking for this nurse. Daughter reports pt. was doing fine all last night , took some ibuprofen this morning and about the last hour or so, pt. has been uncomfortable, reports swelling and unable to feel operative leg. This nurse explained to daughter that she should speak to Dr. Esparza. Daughter transferred to MD office. Daughter called back saying call went right to voicemail. This nurse called office and spoke to Pam and let her know pt's daughter was trying to contact MD with a concern. Daughter to try MD office again. 1715: Daughter, Cleopatra, called back stating Lizette at MD office instructed pt. to take percocet. Daughter reports pt. took half a pill and daughter inquiring whether pt. could still take ibuprofen and tylenol. Nursing explained that ibuprofen and tylenol is for baseline pain control and can still be taken and the narcotic was given for break through pain. Daughter expressed understanding, was going to give ibuprofen per MD orders and tylenol per bottle instruction. Daughter aware that tylenol intake should be less than 4000mg/day.Nursing Note:
== END 2019-05-25 15:34 | disposition home or self-care (01) ==
PROVIDERS: PCP Nurse Practitioner Family; Visit Provider Orthopaedic Surgery
PROC: (CPT 29870; principal; 2019-05-25 09:15)
DX: M23.8X2 Other internal derangements of left knee (principal); M17.12 Unilateral primary osteoarthritis, left knee; M25.562 Pain in left knee; M25.462 Effusion, left knee; M65.862 Other synovitis and tenosynovitis, left lower leg; G60.0 Hereditary motor and sensory neuropathy
CPT/HCPCS: 29877; G0289; 97162; J0690; J1100; J1885; J2405; J3010

== ENCOUNTER 2019-10-25 09:54 | Emergency (ER) | payer MEDICAID, SELFPAY ==
[2019-10-25] VITALS (12 sets, daily range): BP systolic 107–112; BP diastolic 58–65; PULSE 58–65; RESP 11–22; TEMP 36.9–37; O2SAT 95–98
--- NOTE | 2019-10-25 10:16 | ED.GENADUL_ITS ---
Discharge Plan Disposition Patient Disposition: HOME Condition: Stable Discharge Details Chief Complaint: GenMedical Clinical Impression: Bilateral shoulder pain, Cervical muscle strain Primary Care Provider: Ryan Grigsby ED Provider: Amena Javier Home Meds and New Rx's Prescriptions: Continued ibuprofen [IBU-200] 200 mg tablet 600 mg PO TID Qty: 90 RF: 0 Discharge Instructions Instructions: Cervical Strain (ED), Shoulder Pain (ED) Additional Instructions: Alternate ice and heat to the affected area(s) several times daily for 20 minutes at a time. Alternate tylenol 500 mg every 4 hours and motrin 600 mg every 6 hours as needed and directed for pain. You can also try your lidocaine patches that you have at home as needed and directed for pain. Follow-up with your primary care doctor in 1 week. Return to the emergency department with any worsening or new concerning symptoms. 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 She denies any radiation of pain, weakness or numbness to her arms. She states the pain is localized to both shoulders/upper arms. She does admit to some radiation pain to the right side of her neck. She states she has chronic bilateral lower extremity weakness and foot drop for which she uses braces and a cane. She states she has no worsening of her chronic symptoms in her legs. She denies any fever, headache, chest pain, shortness of breath, abdominal pain, nausea or vomiting. She states she has not taken any medication for pain. An EKG was done on arrival due to patient's complain of arm pain which notes a rate of 56, sinus with no acute ST ischemic changes. She appears nontoxic and is hemodynamically stable. She has tenderness palpation of her bilateral shoulders and upper arms with pain worse with range of motion. She has tenderness to palpation of her right cervical paraspinal region. No focal deficits. Neurovascular intact. Discussed with patient that this appears likely musculoskeletal due to her recent exertion with shoveling. Do not see indication for labs or imaging. Patient is agreeable with plan for Toradol IM, Valium p.o. and Lidoderm patch to right neck. 1047 --nurse states that patient is refusing all medication. Patient states that she just wanted evaluation to make sure this was not anything concerning that she feels more comfortable knowing it is musculoskeletal and would like to go home. She states she does not like to take medication. She is advised to alternate ice and heat, Lidoderm patch and Tylenol and Motrin as needed. Medical Records Medical records reviewed: Yes I reviewed the patient's medical records. HPI General Mode of arrival: ambulatory . Date/Time Provider Initiated Documentation: 10/25/19 09:55 . Limitations to Documentation: no limitations . Information obtained by: patient . History of Present Illness 54 year old F presents to the emergency department with the chief complaint of Bilateral shoulder upper arm pain. Right-sided neck pain, Quality is described as aching, and is localized to the left, right and upper extremity. Patient reports no radiation. Patient started experiencing this day(s) (1) and it has been constant. Rest improves symptom(s), Movement worsens symptoms . Patient notes no other symptoms.. Patient did receive the following cary atments prior to arrival, none Related Data Home Medications Medication Instructions Recorded Confirmed ibuprofen [IBU-200] 600 mg PO TID #90 tab 05/25/19 10/25/19 Previous Rx's Medication Instructions Recorded ibuprofen [IBU-200] 600 mg PO TID #90 tab 05/25/19 Allergies Allergy/AdvReac Type Severity Reaction Status Date / Time bee venom protein (honey bee) Allergy Severe Verified 10/25/19 10:08 paclitaxel [From Taxol] AdvReac Severe Other (See Verified 10/25/19 10:08 Comment) vincristine AdvReac Severe Other (See Verified 10/25/19 10:08 Comment) amiodarone AdvReac Intermediate Other (See Verified 10/25/19 10:08 Comment) arsenic [From Trisenox] AdvReac Intermediate Other (See Verified 10/25/19 10:08 Comment) bortezomib [From Velcade] AdvReac Intermediate Other (See Verified 10/25/19 10:08 Comment) brentuximab vedotin AdvReac Intermediate Other (See Verified 10/25/19 10:08 [From Adcetris] Comment) cetuximab [From Erbitux] AdvReac Intermediate Other (See Verified 10/25/19 10:08 Comment) cisplatin AdvReac Intermediate Other (See Verified 10/25/19 10:08 Comment) dapsone AdvReac Intermediate Other (See Verified 10/25/19 10:08 Comment) didanosine AdvReac Intermediate Other (See Verified 10/25/19 10:08 Comment) disulfiram AdvReac Intermediate Other (See Verified 10/25/19 10:08 Comment) eribulin [From Halaven] AdvReac Intermediate Other (See Verified 10/25/19 10:08 Comment) Gold Salts AdvReac Intermediate Other (See Verified 10/25/19 10:08 Comment) ipilimumab [From Yervoy] AdvReac Intermediate Other (See Verified 10/25/19 10:08 Comment) ixabepilone [From Ixempra] AdvReac Intermediate Other (See Verified 10/25/19 10:08 Comment) leflunomide [From Arava] AdvReac Intermediate Other (See Verified 10/25/19 10:08 Comment) lenalidomide [From Revlimid] AdvReac Intermediate Other (See Verified 10/25/19 10:08 Comment) metronidazole AdvReac Intermediate Other (See Verified 10/25/19 10:08 Comment) nitrofurantoin AdvReac Intermediate Other (See Verified 10/25/19 10:08 Comment) nitrous oxide AdvReac Intermediate Other (See Verified 10/25/19 10:08 Comment) nivolumab AdvReac Intermediate Other (See Verified 10/25/19 10:08 Comment) oxaliplatin AdvReac Intermediate Other (See Verified 10/25/19 10:08 Comment) pembrolizumab [From Keytruda] AdvReac Intermediate Other (See Verified 10/25/19 10:08 Comment) pomalidomide AdvReac Intermediate Other (See Verified 10/25/19 10:08 Comment) pyridoxine AdvReac Intermediate Other (See Verified 10/25/19 10:08 Comment) Quinolones AdvReac Intermediate Other (See Verified 10/25/19 10:08 Comment) stavudine AdvReac Intermediate Other (See Verified 10/25/19 10:08 Comment) suramin AdvReac Intermediate Other (See Verified 10/25/19 10:08 Comment) thalidomide AdvReac Intermediate Other (See Verified 10/25/19 10:08 Comment) zalcitabine AdvReac Intermediate Other (See Verified 10/25/19 10:08 Comment) General Stated Complaint: GenMedical AGNIESZKA: 2 Review of Systems All systems reviewed & are unremarkable except as noted in HPI and below Constitutional Constitutional: Reports as per HPI, Denies chills and Denies fever(s) Eyes Eyes: Denies blurry vision ENT Ears, Nose, Mouth, and Throat: Denies dizziness, Reports neck pain (R side), Denies sore throat and Denies throat swelling Cardiovascular Cardiovascular: Denies chest pain and Denies dyspnea Respiratory Respiratory: Denies cough and Denies dyspnea Gastrointestinal Gastrointestinal: Denies abdominal pain, Denies diarrhea and Denies vomiting Genitourinary Genitourinary: Denies hematuria and Denies dysuria Musculoskeletal Musculoskeletal: Denies back pain, Reports neck pain (R side) and Denies numbness Comments: b/l shoulder/upper arm Integumentary/Breasts Skin/Breast: Denies lesions and Denies rash Neurologic Neurologic: Denies dizziness, Denies focal weakness and Denies numbness Allergic/Immunologic Allergic/Immunologic: Denies throat swelling [facility] Medical History CMT (Jysbvsz-Ommqe-Kwaem disease) (Chronic) Diagnosed in 2016 Surgical History History of hysterectomy (Resolved) 2008 Status post tubal ligation (Acute) 2006 Family History Mother Obesity Father Diabetes Obesity History of heart artery stent Social History Smoking/Tobacco Use Status: Never Alcohol Intake: never Drug use: Never Substance use type: does not use Do you feel safe at home: Yes Do you feel safe in your relationship?: Yes Exam Const General: cooperative, healthy appearing and no acute distress HENMT Head: normal to inspection Face and sinus: normal facial exam Eyes General: appearance normal, both eyes and all related structures EOM: EOM intact bilaterally Neck Neck: normal visual inspection and No submandibular swelling Lymphatic: no lymphadenopathy noted Chest Chest: normal inspection of the chest and no tenderness Resp Effort & Inspection: normal respiratory effort and able to speak in complete sentences Auscultation: clear to auscultation bilaterally Cardio Rate: regular rate Rhythm: regular rhythm Back/Spine/Pelvis Cervical Spine: cervical muscular tenderness (R side) and pain with cervical ROM (minimal on R side) Thoracic/Lumbar Spine: No paraspinal tenderness, No thoracic spinal tenderness and No lumbar spinal tenderness Skin General skin exam: no rashes or lesions noted Neuro General: alert, awake and oriented x3 Cognition: normal cognition Speech: speech normal Motor: muscle tone normal throughout and strength 5/5 throughout Sensory Exam: no sensory deficits noted Other: Normal motor and sensory function to radial, median, ulnar nerve distribution. Extrem General: normal to inspection, full ROM and normal capillary refill Other: Tenderness to palpation of b/l anterior/lateral shoulders/proximal upper arms. Bilateral radial and ulnar pulses intact. Psych Appearance: grossly normal Mental Status: mental status grossly normal Speech and Movement: speech and movement normal Affect: normal affect Course Vital Signs Vital signs: Vital Signs Temperature 98.6 F 10/25/19 10:04 Pulse 62 10/25/19 10:04 Respiratory Rate 22 10/25/19 10:04 Blood Pressure 112/65 10/25/19 10:04 Pulse Oximetry 98 10/25/19 10:04 Temperature 98.6 F 10/25/19 10:04 Temperature Source Skin 10/25/19 10:04 Pulse 62 10/25/19 10:04 Respiratory Rate 22 10/25/19 10:08 Respiratory Effort Non-Labored 10/25/19 10:08 Respiratory Depth Normal 10/25/19 10:08 Respiratory Pattern Normal 10/25/19 10:08 Blood Pressure 112/65 10/25/19 10:04 Blood Pressure Position Sitting 10/25/19 10:04 Pulse Oximetry 98 10/25/19 10:04 Oxygen Delivery Method Room Air 10/25/19 10:04 Oxygen Flow Rate 0 10/25/19 10:04 Pain Level 5 10/25/19 10:04
== END 2019-10-25 11:08 | disposition home or self-care (01) ==
PROVIDERS: Emergency Provider Physician Assistant; PCP Nurse Practitioner Family
DX: M25.511 Pain in right shoulder (principal); M25.512 Pain in left shoulder; S16.1XXA Strain of muscle, fascia and tendon at neck level, initial encounter; X50.0XXA Overexertion from strenuous movement or load, initial encounter; Y93.H1 Activity, digging, shoveling and raking; G60.0 Hereditary motor and sensory neuropathy
CPT/HCPCS: 93005; 99284; 93010; 99285

== ENCOUNTER 2020-05-26 11:35 | Outpatient (REF) | payer MEDICAID, SELFPAY ==
[2020-05-26 18:20] LABS: Abs Immature Grans 0.01 10^3/uL (0.0-0.06); Absolute Basophil Count 0.02 10^3/uL (0.0-0.2); Absolute Lymphocyte Count 2.26 10^3/uL (1.2-3.4); Absolute Monocyte Count 0.32 10^3/uL (0.1-0.8); Absolute Neutrophil Count 3.48 10^3/uL (1.2-6.7); Basophils % 0.3; Eosinophils % 1.6; HGB 13.1 g/dL (11.2-15.7); Immature Grans % 0.2; Lymphocytes % 36.5; MCH 29.1 pg (27.0-33.0); MCHC 32.8 % (32.0-36.0); MCV 88.9 fL (80-95); MPV 11.3 fL (8.0-11.0); Monocytes % 5.2; Neutrophils % 56.2; Nucleated RBC 0 %; Platelet Count 240 10^3/uL (130-400); RDW 13.4 % (11.7-14.6); RDW-SD 43.9 fL; WBC 6.19 10^3/uL (4.4-10.8)
[2020-05-26 18:43] LABS: ALT 31 U/L (14-59); AST 19 U/L (15-37); Albumin 3.4 g/dL (3.4-5.0); Alkaline Phosphatase 85 U/L (46-116); Anion Gap 7.4 mmol/L (3-11); BUN 20 mg/dL (7-18); Bilirubin, Total 0.3 mg/dL (0.2-1.0); CO2 28.6 mmol/L (21.0-32.0); CREATININE 0.56 mg/dL (0.55-1.02); Calcium 8.6 mg/dL (8.5-10.1); Calculated LDL 118 mg/dL (<100); Chloride 102 mmol/L (98-107); Cholesterol 215 mg/dL (<200); Glucose 97 mg/dL (74-106); HDL Cholesterol 44 mg/dL (40-60); Sodium 138 mmol/L (136-145); TSH (W/Ref FT4) 3.96 uIU/mL (0.36-3.74); Total Protein 7.1 g/dL (6.4-8.2); Triglyceride 265 mg/dL (<150)
== END 2020-05-26 11:55 ==
LOC: NCHCN 11:35
PROVIDERS: PCP Nurse Practitioner Family; Visit Provider Nurse Practitioner Family
DX: G60.0 Hereditary motor and sensory neuropathy (principal); R63.5 Abnormal weight gain; K13.70 Unspecified lesions of oral mucosa
CPT/HCPCS: 80053; 80061; 84439; 84443; 85025

== ENCOUNTER 2020-11-07 18:16 | Outpatient (REF) | payer MEDICAID, SELFPAY ==
--- NOTE | 2020-11-07 14:37 | GINGIVA_PTH ---
PATIENT: Susanne Kenny LOC: [facility] U#:[id number] AGE/SX: 55/F ROOM: RE11/07/[address]: YIMI Bryant : 1965 BED: DIS: 11/07/2020 SPEC #: [id number] RECD: 11/07/20 18:28 STATUS: CARY REQ #: [id number] RITA: 11/07/20 14:[address]: Conrad Tsang DEPT: Surgical Specimen RECD BY: Lydia Cooper ENTERED: 11/07/20 18:28 SP TYPE: Gingiva OTHR DR: Ryan Grigsby Tissues: 1 - MUCOSA, NOS Procedures: SPECIAL STAIN 2 GROSS AND MICRO LEVEL 4 Comments: [id number]
== END 2020-11-07 18:17 | disposition home or self-care (01) ==
LOC: LBN 18:16
PROVIDERS: PCP Nurse Practitioner Family; Visit Provider Physician Assistant
DX: K13.6 Irritative hyperplasia of oral mucosa (principal); K05.01 Acute gingivitis, non-plaque induced
CPT/HCPCS: 88305; 88313

== ENCOUNTER 2021-03-05 15:12 | Emergency (ER) | payer MEDICAID, SELFPAY ==
[2021-03-05 15:23] VITALS: BP 120/71; PULSE 65; TEMP 36.9; O2SAT 98
--- NOTE | 2021-03-05 16:00 | DI.CT_ITS ---
Exam(s) CT ABDOMEN PELVIS W EXAM: CT ABDOMEN PELVIS W CLINICAL HISTORY: RLQ and RUQ pain, abd distension,hyst for ca 2008. TECHNIQUE: Imaging Protocol: Axial computed tomography images with coronal and sagittal reformatted images were created and reviewed CONTRAST MATERIAL: Intravenous: Omnipaque 100cc Oral: None COMPARISON: No exams were available for comparison FINDINGS: VISUALIZED LUNG BASES: No nodules nor pleural effusions evident. ABDOMEN: There is no ascites. LIVER: There are no focal hepatic lesions evident . GALLBLADDER/BILIARY: No obvious gallbladder pathology. CBD is not dilated. PANCREAS: No evidence of pancreatic mass nor dilatation of the pancreatic duct. SPLEEN: Spleen is not enlarged. No obvious intrasplenic lesions. Splenic and portal veins are paten t. ADRENALS: There are no significant adrenal masses. KIDNEYS:No cysts evident. No solid renal masses. No calculi nor hydronephrosis.. ABDOMINAL AORTA: Abdominal aorta is not enlarged. LYMPH NODES:There are multiple small mesenteric lymph nodes noted. Average size 8 millimeters. Sple en is not enlarged.. ABDOMINAL WALL: No evidence of significant anterior abdominal wall hernia. GI: There is no evidence of bowel obstruction, free air, nor abscess. PELVIS: GI: No evidence of appendicitis.No evidence of sigmoid diverticulitis.Sigmoid is redundant. LYMPH NODES: There is no intrapelvic nor inguinal adenopathy. REPRODUCTIVE: The uterus is surgically absent. There are no abnormal adnexal masses. No free fluid in the pelvis. URINARY BLADDER: No calculi nor obvious masses evident OSSEOUS: No significant osseous lesions. IMPRESSION: 1. There are multiple slightly prominent lymph nodes in the mesentery, exhibiting average size 8 mill imeters. Is no gross matted lymphadenopathy nor omental cake. 2. The uterus is surgically absent. There are no abnormal adnexal masses. No free fluid. 3. There is no ascites. 4. RADIATION DOSE DELIVERED: 1,035.45mGy.cm Total DLP DATA REPOSITORY: All CT scans at this facility are submitted to the National Radiology Data Registry (NRDR) Dose Index Registry (DIR) with the [employer] (A[employer]). RADIATION OPTIMIZATION: All CT scans at this facility use at least one of these dose optimization te chniques: automated exposure control; mA and/or kV adjustment per patient size (includes targeted exa ms where dose is matched to clinical indication); or iterative reconstruction.
[2021-03-05 16:22] LABS: Abs Immature Grans 0.02 10^3/uL (0.0-0.06); Absolute Basophil Count 0.02 10^3/uL (0.0-0.2); Absolute Lymphocyte Count 2.94 10^3/uL (1.2-3.4); Absolute Monocyte Count 0.42 10^3/uL (0.1-0.8); Absolute Neutrophil Count 4.27 10^3/uL (1.2-6.7); Basophils % 0.3; Eosinophils % 1.3; HCT 42.9 % (36.0-46.0); HGB 14.1 g/dL (11.2-15.7); Immature Grans % 0.3; Lymphocytes % 37.8; MCH 29.2 pg (27.0-33.0); MCHC 32.9 % (32.0-36.0); MCV 88.8 fL (80-95); MPV 10.3 fL (8.0-11.0); Monocytes % 5.4; Neutrophils % 54.9; Nucleated RBC 0 %; Platelet Count 250 10^3/uL (130-400); RBC 4.83 10^6/uL (3.93-5.22); RDW 13.2 % (11.7-14.6); RDW-SD 42.7 fL; WBC 7.77 10^3/uL (4.4-10.8)
[2021-03-05 16:32] LABS: Bilirubin Negative (Negative); Blood Trace-intact (Negative); Clarity Clear (Clear); Glucose Negative (Negative); Ketones Negative (Negative); Leukocyte Esterase Negative (Negative); Nitrite Negative (Negative); Urobilinogen 0.2 EU/dL (Up TO 0.2); pH 6.5 (5-8)
[2021-03-05] MEDS: ACETAMINOPHEN 1,000 MG/100 ML BTL 400 MG IVPB (16:33)
[2021-03-05 16:40] LABS: ALT 30 U/L (14-59); AST 22 U/L (15-37); Albumin 3.6 g/dL (3.4-5.0); Alkaline Phosphatase 97 U/L (46-116); Anion Gap 9.8 mmol/L (3-11); BUN 21 mg/dL (7-18); Bilirubin, Total 0.4 mg/dL (0.2-1.0); CO2 28.2 mmol/L (21.0-32.0); CREATININE 0.7 mg/dL (0.55-1.02); Calcium 9.1 mg/dL (8.5-10.1); Chloride 102 mmol/L (98-107); Glucose 92 mg/dL (74-106); Lipase 136 U/L (73-393); Potassium 3.6 mmol/L (3.5-5.1); Sodium 140 mmol/L (136-145); Total Protein 8.4 g/dL (6.4-8.2)
--- NOTE | 2021-03-05 16:40 | W.ED.GENAD ---
Discharge Plan Disposition Patient Disposition: HOME Condition: Good Discharge Details Clinical Impression: Abdominal pain, Lymphadenopathy Primary Care Provider: Ryan Grigsby ED Provider: Lydia Barbosa Home Meds and New Rx's Prescriptions: No Action ibuprofen [IBU-200] 200 mg tablet 600 mg PO TID Qty: 90 RF: 0 Discharge Instructions Instructions: Abdominal Pain (ED) Additional Instructions: Take Tylenol as needed for pain Follow-up with your doctor regarding the slightly enlarged lymph nodes on your CAT scan, this may be something called mesenteric adenitis which is usually viral in nature but should be rechecked by your doctor Please return with worsening pain, fever, chills, nausea, vomiting, or should you develop new or worsening complaints Discharge Data Discharge Date/Time-TO BE ENTERED AT DEPARTURE: 03/05/21 19:25 HPI General Mode of arrival: ambulatory. Date/Time Provider Initiated Documentation: 03/05/21 16:13. Limitations to Documentation: no limitations. Information obtained by: patient. 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 She states it was all in her lower abdomen. She denies any chest pain or shortness of breath. She denies any dizziness or weakness. She does have a history of uterine cancer but states that she had a total hysterectomy and but she is in remission. She denies any urinary complaints or history of similar pain in the past. She denies any known exacerbating or alleviating factors. She described the pain as being short. She denies fever or chills. She denies any nausea or vomiting. She denies any additional complaints at this time. She is feeling mild improvement. She denies any flank pain. Denies epigastric discomfort. Related Data Home Medications Medication Instructions Recorded Confirmed ibuprofen [IBU-200] 600 mg PO TID #90 tab 05/25/19 10/25/19 Previous Rx's Medication Instructions Recorded ibuprofen [IBU-200] 600 mg PO TID #90 tab 05/25/19 Allergies Allergy/AdvReac Type Severity Reaction Status Date / Time bee venom protein (honey bee) Allergy Severe Verified 03/05/21 17:05 paclitaxel [From Taxol] AdvReac Severe Other (See Verified 03/05/21 17:05 Comment) vincristine AdvReac Severe Other (See Verified 03/05/21 17:05 Comment) amiodarone AdvReac Intermediate Other (See Verified 03/05/21 17:05 Comment) arsenic [From Trisenox] AdvReac Intermediate Other (See Verified 03/05/21 17:05 Comment) bortezomib [From Velcade] AdvReac Intermediate Other (See Verified 03/05/21 17:05 Comment) brentuximab vedotin AdvReac Intermediate Other (See Verified 03/05/21 17:05 [From Adcetris] Comment) cetuximab [From Erbitux] AdvReac Intermediate Other (See Verified 03/05/21 17:05 Comment) cisplatin AdvReac Intermediate Other (See Verified 03/05/21 17:05 Comment) dapsone AdvReac Intermediate Other (See Verified 03/05/21 17:05 Comment) didanosine AdvReac Intermediate Other (See Verified 03/05/21 17:05 Comment) disulfiram AdvReac Intermediate Other (See Verified 03/05/21 17:05 Comment) eribulin [From Halaven] AdvReac Intermediate Other (See Verified 03/05/21 17:05 Comment) Gold Salts AdvReac Intermediate Other (See Verified 03/05/21 17:05 Comment) ipilimumab [From Yervoy] AdvReac Intermediate Other (See Verified 03/05/21 17:05 Comment) ixabepilone [From Ixempra] AdvReac Intermediate Other (See Verified 03/05/21 17:05 Comment) leflunomide [From Arava] AdvReac Intermediate Other (See Verified 03/05/21 17:05 Comment) lenalidomide [From Revlimid] AdvReac Intermediate Other (See Verified 03/05/21 17:05 Comment) metronidazole AdvReac Intermediate Other (See Verified 03/05/21 17:05 Comment) nitrofurantoin AdvReac Intermediate Other (See Verified 03/05/21 17:05 Comment) nitrous oxide AdvReac Intermediate Other (See Verified 03/05/21 17:05 Comment) nivolumab AdvReac Intermediate Other (See Verified 03/05/21 17:05 Comment) oxaliplatin AdvReac Intermediate Other (See Verified 03/05/21 17:05 Comment) pembrolizumab [From Keytruda] AdvReac Intermediate Other (See Verified 03/05/21 17:05 Comment) pomalidomide AdvReac Intermediate Other (See Verified 03/05/21 17:05 Comment) pyridoxine AdvReac Intermediate Other (See Verified 03/05/21 17:05 Comment) Quinolones AdvReac Intermediate Other (See Verified 03/05/21 17:05 Comment) stavudine AdvReac Intermediate Other (See Verified 03/05/21 17:05 Comment) suramin AdvReac Intermediate Other (See Verified 03/05/21 17:05 Comment) thalidomide AdvReac Intermediate Other (See Verified 03/05/21 17:05 Comment) zalcitabine AdvReac Intermediate Other (See Verified 03/05/21 17:05 Comment) General Stated Complaint: Abd Prob AGNIESZKA: 3 Review of Systems Narrative: Review of systems obtained x7 aside from where indicated in HPI [facility] Medical History (Updated 03/05/21 @ 19:10 by YIMI Espitia) CMT (Pvfysok-Ipepc-Qlnqu disease) Diagnosed in 2016 Surgical History History of hysterectomy 2008 Status post tubal ligation 2007 Family History Mother Obesity Father Diabetes Obesity History of heart artery stent Social History Smoking/Tobacco Use Status: Never Smoking risk assessment performed?: Yes Alcohol Intake: never Drug use: Never Substance use type: does not use Do you feel safe at home: Yes Do you feel safe in your relationship?: Yes Course Vital Signs Vital signs: Vital Signs Temperature 36.9 C 03/05/21 15:23 Pulse 65 03/05/21 15:23 Blood Pressure 120/71 03/05/21 15:23 Pulse Oximetry 98 03/05/21 15:23 Temperature 36.9 C 03/05/21 15:23 Temperature Source Temporal Artery Scan 03/05/21 15:23 Pulse 65 03/05/21 15:23 Respiratory Effort Non-Labored 03/05/21 16:00 Blood Pressure 120/71 03/05/21 15:23 Blood Pressure Position Sitting 03/05/21 15:23 Pulse Oximetry 98 03/05/21 15:23 Oxygen Delivery Method Room Air 03/05/21 15:23 Oxygen Flow Rate 0 03/05/21 15:23 Pain Level 7 03/05/21 15:23 Lab/Test Results Lab/Test Results: Laboratory Tests Range/Units 03/05/21 03/05/21 15:45 16:24 WBC (4.4-10.8) 10^3/uL 7.77 RBC (3.93-5.22) 10^6/uL 4.83 Hgb (11.2-15.7) g/dL 14.1 Hct (36.0-46.0) % 42.9 MCV (80-95) fL 88.8 MCH (27.0-33.0) pg 29.2 MCHC (32.0-36.0) % 32.9 RDW (11.7-14.6) % 13.2 Plt Count (130-400) 10^3/uL 250 MPV (8.0-11.0) fL 10.3 Immature Gran % 0.3 Neutrophils % 54.9 Lymphocytes % 37.8 Monocytes % 5.4 Eosinophils % 1.3 Basophils % 0.3 Nucleated RBC % % 0 Absolute Neutrophils (1.2-6.7) 10^3/uL 4.27 Absolute Lymphocytes (1.2-3.4) 10^3/uL 2.94 Absolute Monocytes (0.1-0.8) 10^3/uL 0.42 Absolute Eosinophils (0.0-0.7) 10^3/uL 0.10 Absolute Basophils (0.0-0.2) 10^3/uL 0.02 Urine Color (Yellow) Yellow Urine Clarity (Clear) Clear Urine pH (5-8) 6.5 Ur Specific [place] (1.005-1.025) 1.020 Urine Protein (Negative) mg/dL Negative Urine Ketones (Negative) mg/dL Negative Urine Blood (Negative) Trace-intact H Urine Nitrite (Negative) Negative Urine Bilirubin (Negative) Negative Urine Urobilinogen (Up TO 0.2) EU/dL 0.2 Ur Leukocyte Esterase (Negative) Negative Urine Glucose (Negative) mg/dL Negative
[2021-03-05 16:45] LABS: Bacteria Negative HPF (Negative); C & S Indicated? No; Crystals Negative HPF (Negative); Epithelial Cells Moderate HPF (Negative); Mucus Negative (Negative); RBC 0-2 HPF (0-2); WBC Negative HPF (0-5)
[2021-03-05] MEDS: Omnipaque 350 MG/ML 100 ML BTL IV (17:24)
[2021-03-05 17:28] VITALS: BP 118/76; PULSE 57; RESP 16; O2SAT 99
[2021-03-05 19:18] VITALS: BP 121/71; PULSE 60; RESP 18; TEMP 36.6; O2SAT 100
--- NOTE | 2021-03-16 08:41 | ED.GENADUL_ITS ---
Discharge Plan Disposition Patient Disposition: HOME Condition: Good Discharge Details Clinical Impression: Abdominal pain, Lymphadenopathy Primary Care Provider: Ryan Grigsby ED Provider: Lydia Barbosa Home Meds and New Rx's Prescriptions: No Action ibuprofen [IBU-200] 200 mg tablet 600 mg PO TID Qty: 90 RF: 0 Discharge Instructions Instructions: Abdominal Pain (ED) Additional Instructions: Take Tylenol as needed for pain Follow-up with your doctor regarding the slightly enlarged lymph nodes on your CAT scan, this may be something called mesenteric adenitis which is usually viral in nature but should be rechecked by your doctor Please return with worsening pain, fever, chills, nausea, vomiting, or should you develop new or worsening complaints Discharge Data Discharge Date/Time-TO BE ENTERED AT DEPARTURE: 03/05/21 19:25 Medical Decision Making Patient is feeling symptomatically improved at time of reevaluation Her ovaries are normal in size without any free fluid, no suspicion for ovarian torsion, appendix was visualized by radiologist and did not show evidence of acute inflammation I reviewed the CAT scan abdomen and pelvis Patient does have several lymph nodes in this area, she is instructed to follow- up with her doctor regarding this finding, the radiologist does not document specific concern for lymphoma or more ominous pathology, however patient is made aware that it is very important that she has follow-up Return precautions discussed and patient expressed understanding, discharged home clinically improved with reassuring diagnostic labs in the care of her family Outpatient follow-up in 24 to 48 hours recommended Differential Diagnosis Differential Diagnosis: Ovarian torsion, appendicitis, diverticulitis, IBS, mesenteric adenitis Medical Records Medical records reviewed: Yes I reviewed the patient's medical records. Lab Data Lab results reviewed: Yes I reviewed the patient's lab results. ECG Data Prior ECG tracings: available for review HPI General Mode of arrival: ambulatory . Date/Time Provider Initiated Documentation: 03/05/21 16:13 . Limitations to Documentation: no limitations . Information obtained by: patient . HPI Narrative: 56-year-old female with history of CMT presents with acute onset of right lower quadrant abdominal pain while driving stairs prior to arrival. She states the pain has not relented which is why she presents. She denies nausea vomiting diarrhea. She denies any chest pain or shortness of breath. She states the pain is worse when she walks. She denies prior history of similar pain in the past. She states she is status prior to radical hysterectomy. She denies any urinary symptoms. She describes the pain as sharp. She denies risk of sexually transmitted disease. Related Data Home Medications Medication Instructions Recorded Confirmed ibuprofen [IBU-200] 600 mg PO TID #90 tab 05/25/19 10/25/19 Previous Rx's Medication Instructions Recorded ibuprofen [IBU-200] 600 mg PO TID #90 tab 05/25/19 Allergies Allergy/AdvReac Type Severity Reaction Status Date / Time bee venom protein (honey bee) Allergy Severe Verified 03/05/21 17:05 paclitaxel [From Taxol] AdvReac Severe Other (See Verified 03/05/21 17:05 Comment) vincristine AdvReac Severe Other (See Verified 03/05/21 17:05 Comment) amiodarone AdvReac Intermediate Other (See Verified 03/05/21 17:05 Comment) arsenic [From Trisenox] AdvReac Intermediate Other (See Verified 03/05/21 17:05 Comment) bortezomib [From Velcade] AdvReac Intermediate Other (See Verified 03/05/21 17:05 Comment) brentuximab vedotin AdvReac Intermediate Other (See Verified 03/05/21 17:05 [From Adcetris] Comment) cetuximab [From Erbitux] AdvReac Intermediate Other (See Verified 03/05/21 17:05 Comment) cisplatin AdvReac Intermediate Other (See Verified 03/05/21 17:05 Comment) dapsone AdvReac Intermediate Other (See Verified 03/05/21 17:05 Comment) didanosine AdvReac Intermediate Other (See Verified 03/05/21 17:05 Comment) disulfiram AdvReac Intermediate Other (See Verified 03/05/21 17:05 Comment) eribulin [From Halaven] AdvReac Intermediate Other (See Verified 03/05/21 17:05 Comment) Gold Salts AdvReac Intermediate Other (See Verified 03/05/21 17:05 Comment) ipilimumab [From Yervoy] AdvReac Intermediate Other (See Verified 03/05/21 17:05 Comment) ixabepilone [From Ixempra] AdvReac Intermediate Other (See Verified 03/05/21 17:05 Comment) leflunomide [From Arava] AdvReac Intermediate Other (See Verified 03/05/21 17:05 Comment) lenalidomide [From Revlimid] AdvReac Intermediate Other (See Verified 03/05/21 17:05 Comment) metronidazole AdvReac Intermediate Other (See Verified 03/05/21 17:05 Comment) nitrofurantoin AdvReac Intermediate Other (See Verified 03/05/21 17:05 Comment) nitrous oxide AdvReac Intermediate Other (See Verified 03/05/21 17:05 Comment) nivolumab AdvReac Intermediate Other (See Verified 03/05/21 17:05 Comment) oxaliplatin AdvReac Intermediate Other (See Verified 03/05/21 17:05 Comment) pembrolizumab [From Keytruda] AdvReac Intermediate Other (See Verified 03/05/21 17:05 Comment) pomalidomide AdvReac Intermediate Other (See Verified 03/05/21 17:05 Comment) pyridoxine AdvReac Intermediate Other (See Verified 03/05/21 17:05 Comment) Quinolones AdvReac Intermediate Other (See Verified 03/05/21 17:05 Comment) stavudine AdvReac Intermediate Other (See Verified 03/05/21 17:05 Comment) suramin AdvReac Intermediate Other (See Verified 03/05/21 17:05 Comment) thalidomide AdvReac Intermediate Other (See Verified 03/05/21 17:05 Comment) zalcitabine AdvReac Intermediate Other (See Verified 03/05/21 17:05 Comment) General Stated Complaint: Abd Prob AGNIESZKA: 3 Review of Systems All systems reviewed & are unremarkable except as noted in HPI and below PFSH Medical History (Updated 03/05/21 @ 19:10 by YIMI Espitia) CMT (Frvzjby-Chfkz-Yvawi disease) Diagnosed in 2016 Surgical History History of hysterectomy 2008 Status post tubal ligation 2007 Family History Mother Obesity Father Diabetes Obesity History of heart artery stent Social History Smoking/Tobacco Use Status: Never Smoking risk assessment performed?: Yes Alcohol Intake: never Drug use: Never Substance use type: does not use Do you feel safe at home: Yes Do you feel safe in your relationship?: Yes Exam Const General: cooperative and no acute distress [facility] Head: normal to inspection Mouth: oral mucosae normal Chest Chest: normal inspection of the chest Resp Effort & Inspection: normal respiratory effort Cardio Rate: regular rate Rhythm: regular rhythm GI Inspection: normal to inspection Other: Tenderness with palpation in the periumbilical and right lower quadrant region, no CVA tenderness No rebound or guarding Skin General skin exam: no rashes or lesions noted Neuro General: patient alert and patient oriented x3 Course Vital Signs Vital signs: Vital Signs Temperature 36.9 C 03/05/21 15:23 Pulse 65 03/05/21 15:23 Blood Pressure 120/71 03/05/21 15:23 Pulse Oximetry 98 03/05/21 15:23 Temperature 36.6 C 03/05/21 19:18 Temperature Source Temporal Artery Scan 03/05/21 15:23 Pulse 60 03/05/21 19:18 Respiratory Rate 18 03/05/21 19:18 Respiratory Effort Non-Labored 03/05/21 16:00 Blood Pressure 121/71 03/05/21 19:18 Blood Pressure Position Sitting 03/05/21 15:23 Pulse Oximetry 100 03/05/21 19:18 Oxygen Delivery Method Room Air 03/05/21 17:28 Oxygen Flow Rate 0 03/05/21 17:28 Pain Level 4 03/05/21 19:18 Lab/Test Results Lab/Test Results: Laboratory Tests Range/Units 03/05/21 03/05/21 03/05/21 15:45 15:45 16:24 WBC (4.4-10.8) 10^3/uL 7.77 RBC (3.93-5.22) 10^6/uL 4.83 Hgb (11.2-15.7) g/dL 14.1 Hct (36.0-46.0) % 42.9 MCV (80-95) fL 88.8 MCH (27.0-33.0) pg 29.2 MCHC (32.0-36.0) % 32.9 RDW (11.7-14.6) % 13.2 Plt Count (130-400) 10^3/uL 250 MPV (8.0-11.0) fL 10.3 Immature Gran % 0.3 Neutrophils % 54.9 Lymphocytes % 37.8 Monocytes % 5.4 Eosinophils % 1.3 Basophils % 0.3 Nucleated RBC % % 0 Absolute Neutrophils (1.2-6.7) 10^3/uL 4.27 Absolute Lymphocytes (1.2-3.4) 10^3/uL 2.94 Absolute Monocytes (0.1-0.8) 10^3/uL 0.42 Absolute Eosinophils (0.0-0.7) 10^3/uL 0.10 Absolute Basophils (0.0-0.2) 10^3/uL 0.02 Sodium (136-145) mmol/L 140 Potassium (3.5-5.1) mmol/L 3.6 Chloride (98-107) mmol/L 102 Carbon Dioxide (21.0-32.0) mmol/L 28.2 Anion Gap (3-11) mmol/L 9.8 BUN (7-18) mg/dL 21 H Creatinine (0.55-1.02) mg/dL 0.7 Estimated GFR/1.73 m2 (mL/min/1.73m2) >= 60.00 Glucose (74-106) mg/dL 92 Calcium (8.5-10.1) mg/dL 9.1 Magnesium (1.8-2.4) mg/dL 2.0 Total Bilirubin (0.2-1.0) mg/dL 0.4 AST (15-37) U/L 22 ALT (14-59) U/L 30 Alkaline Phosphatase (46-116) U/L 97 Total Protein (6.4-8.2) g/dL 8.4 H Albumin (3.4-5.0) g/dL 3.6 Lipase (73-393) U/L 136 Urine Color (Yellow) Yellow Urine Clarity (Clear) Clear Urine pH (5-8) 6.5 Ur Specific [place] (1.005-1.025) 1.020 Urine Protein (Negative) mg/dL Negative Urine Ketones (Negative) mg/dL Negative Urine Blood (Negative) Trace-intact H Urine Nitrite (Negative) Negative Urine Bilirubin (Negative) Negative Urine Urobilinogen (Up TO 0.2) EU/dL 0.2 Ur Leukocyte Esterase (Negative) Negative Urine RBC (0-2) HPF 0-2 Urine WBC (0-5) HPF Negative Ur Epithelial Cells (Negative) HPF Moderate Urine Crystals (Negative) HPF Negative Urine Bacteria (Negative) HPF Negative Urine Mucus (Negative) Negative Ur Culture Indicated? No Urine Glucose (Negative) mg/dL Negative
== END 2021-03-05 19:25 | disposition home or self-care (01) ==
PROVIDERS: Emergency Provider Physician Assistant; PCP Nurse Practitioner Family
DX: R10.9 Unspecified abdominal pain (principal); R59.0 Localized enlarged lymph nodes
CPT/HCPCS: 80053; 83690; 96374; 99285; 74177; 81003; 81015; 83735; 85025; 99283; J0131; J3490

== ENCOUNTER 2022-06-20 12:23 | Outpatient (REF) | payer MEDICARE, MEDICAID, SELFPAY ==
[2022-06-20 16:10] LABS: FREE T4 0.72 ng/dL (0.76-1.46); TSH 2.78 uIU/mL (0.36-3.74)
== END 2022-06-20 12:24 | disposition home or self-care (01) ==
LOC: NCHCN 12:23
PROVIDERS: Visit Provider Physician Assistant
DX: E03.9 Hypothyroidism, unspecified (principal)
CPT/HCPCS: 84439; 84443